=== PATIENT | female | born 1940 | race Hispanic/Latino ===

== ENCOUNTER 2018-04-05 10:41 | Outpatient (CLI) | payer MEDICARE ==
[2018-04-05 11:31] LABS: Blood Urea Nitrogen 12 mg/dL (7-17)
--- NOTE | 2018-04-05 22:01 | Cat Scan Report ---
FINAL REPORT PROCEDURE: CT ANGIO NECK TECHNIQUE: Computerized tomographic angiography of the neck was performed after the IV injection of iodinated nonionic contrast including image processing. The image data was postprocessed using 2-dimensional multiplanar reformatted (MPR) and 3-dimensional (MIP and/or volume rendered) techniques. HISTORY: OCCLUSION ANDSTENOSIS OF BILAT ARTERIES COMPARISON: No prior studies are available for comparison. Note: Assessment of carotid artery stenosis is based on measurement of the distal internal carotid artery diameter as the denominator for stenosis calculations and the [place] Symptomatic Carotid Endarterectomy Trial (NASCET) stenosis criteria . CPT 3100F FINDINGS: Sinuses: 7 millimeter sclerotic density is noted involving left ethmoid air cells consistent with an osteoma. Non vascular cervical structures: No significant abnormality . Aortic arch: Normal . Right carotid artery: Mild degree stenosis is noted involving the origin of brachiocephalic artery. Distal brachiocephalic artery is not well visualized due to streak artifacts from the venous contrast. Mild degree < 50% stenosis are noted involving carotid bulb and proximal internal carotid artery secondary to calcified plaque formation. Moderate degree 50-75% stenosis is noted involving the origin of right external carotid artery.. Left carotid artery: Moderate degree 50-75% stenosis is noted involving the origin of left common carotid artery. Mild degree< 50% stenosis is noted involving the distal common carotid artery.. Vertebral arteries: Mild degree stenosis is noted involving the origin of left vertebral artery. Right vertebral artery also demonstrates a mild degree stenosis in its proximal portion at the level of C7.. Cervical neural foraminal stenosis is noted at multiple levels secondary to degenerative changes. IMPRESSION: < 50% stenosis of the origin of brachiocephalic artery < 50% stenoses right carotid bulb and proixmal right ICA. 50-75% stenosis of the origin of left CCA. < 50% stenosis of the distal left CCA < 50% stenoses of the proximal bilateral vertebral arteries
== END 2018-04-05 10:42 | disposition home or self-care (01) ==
LOC: CT 10:41
PROVIDERS: ATTEND Internal Medicine Hematology & Oncology
DX: I65.23 Occlusion and stenosis of bilateral carotid arteries (principal); I70.213 Atherosclerosis of native arteries of extremities with intermittent claudication, bilateral legs; J44.9 Chronic obstructive pulmonary disease, unspecified; I25.10 Atherosclerotic heart disease of native coronary artery without angina pectoris; E78.00 Pure hypercholesterolemia, unspecified; I10 Essential (primary) hypertension; Z87.891 Personal history of nicotine dependence; Z90.710 Acquired absence of both cervix and uterus; Z90.12 Acquired absence of left breast and nipple
CPT/HCPCS: 36415; 70498; 82565; 84520; Q9967